=== PATIENT | male | born 1970 | race American Indian/Alaskan Native ===

== ENCOUNTER → 2024-06-26 | Outpatient (CLI) | payer OTHER ==
[~2024-06-26] MED LIST: ALBIPROI INH; CYCL10 PO; ESOM20 PO; FEXO180 PO; HYDACE10 PO; HYDACE5 PO; HYDPAM50 PO; PRED10 PO; PTSD MED; [UNRECOGNIZED DRUG - REMARK]
[2024-06-26 14:26] LABS: Creatinine, Urine Random 99.3 mg/dL (27.00-270.00)
[2024-06-26 14:29] LABS: Microalb/Creat Ratio UR, Rand 15.307 mg/g (0.000-30.000); Microalbumin, Random Urine 15.2 mg/L (0.000-20.000)
== END ==
LOC: LAB 07:28 → LAB SHORT 07:28
PROVIDERS: Nurse Practitioner Family
DX: E11.9 Type 2 diabetes mellitus without complications (principal)
CPT/HCPCS: 82043; 82570

== ENCOUNTER → 2024-12-01 | Outpatient (CLI) | payer OTHER ==
[2024-12-01 15:45] LABS: Creatinine, Urine Random 96.6 mg/dL (27.00-270.00); Microalb/Creat Ratio UR, Rand 45.963 mg/g (0.000-30.000); Microalbumin, Random Urine 44.4 mg/L (0.000-20.000)
== END | disposition home or self-care (01) ==
LOC: LAB 12:41 → LAB SHORT 12:41
PROVIDERS: Nurse Practitioner Family
DX: E11.65 Type 2 diabetes mellitus with hyperglycemia (principal)
CPT/HCPCS: 82043; 82570